=== PATIENT | male | born 1985 | race American Indian/Alaskan Native ===

== ENCOUNTER 2017-11-09 06:23 | Emergency (ER) | payer BC ==
[2017-11-09 06:39] VITALS: BP 126/85
--- NOTE | 2017-11-09 07:08 | XRay Report ---
FINAL REPORT EXAM: XR CHEST ROUTINE 2V HISTORY: productive cough TECHNIQUE: PA and lateral views of the chest were submitted. FINDINGS: The heart size and mediastinum appear normal. The lungs reveal minimal atelectatic changes/infiltrates in the left lower lobe. Pleural fluid is not seen. The skeletal structures do not show any acute changes. IMPRESSION: Minimal atelectatic changes/infiltrates in the left lower lobe.
--- NOTE | 2017-11-09 08:03 | Emergency Department Report ---
Minor Respiratory - HPI Chief Complaint: Upper Respiratory Infection Stated Complaint: CONGESTION WITH EAR PAIN Time Seen by Provider: 11/09/17 07:33 Duration: 4 Days Pain Location: Ear Severity: severe Minor Respiratory: Yes Rhinorrhea (nasal congestion), Yes Able to Tolerate Fluids, Yes Ear Pain (bilateral), Yes Cough, Yes Chest Pain (with cough and), No Sore Throat, No Sick Contacts, No Hemoptysis, No Shortness of Breath, No Fever Other History: This is a 32-year-old male here report that he is not sick for over a week but is getting worse over the last 3 days. Patient reports that he is having in cough that hurts his chest when he coughs. Reported by lateral ear pain and clogged ears. And productive cough with congestion. He said these been taking NyQuil and DayQuil and it is not helping. Denies any fever or chills or nausea or vomiting. Denies any shortness of breath. No alleviating or exacerbating factor with pain. ED Review of Systems ROS: Stated complaint: CONGESTION WITH EAR PAIN Other details as noted in HPI Constitutional: denies: chills, fever Eyes: denies: eye pain, eye discharge ENT: ear pain, congestion. denies: throat pain, hearing loss Respiratory: cough. denies: shortness of breath, stridor, wheezing Cardiovascular: denies: chest pain, palpitations, edema, syncope Gastrointestinal: denies: abdominal pain, nausea, vomiting, diarrhea Musculoskeletal: denies: back pain, joint swelling, arthralgia, myalgia Skin: denies: rash, lesions Neurological: paresthesias. denies: headache ED Past Medical Hx - Past Medical History Previous Medical History?: Yes Additional medical history: Chronia Back Pain - Surgical History Past Surgical History?: No - Family History Family history: hypertension - Social History Smoking Status: Never Smoker Substance Use Type: None - Medications Home Medications: Home Medications Medication Instructions Recorded Confirmed Last Taken Type Docusate Sodium [Colace] 100 mg PO BID #60 capsule 12/15/13 Unknown Rx Starch 51%(Nf) [Anusol] 1 each UT TID #30 supp.rect 12/15/13 Unknown Rx ALBUTEROL Inhaler(NF) [VENTOLIN 2 puff IH Q6H PRN 1 Days #1 inha 11/09/17 Unknown Rx Inhaler(NF)] guaiFENesin/DEXTROMETHORPHAN 20 ml PO Q8H PRN #300 liquid 11/09/17 Unknown Rx [Robitussin Cough-Chest Dm Liq] levoFLOXacin [Levaquin] 750 mg PO QDAY 9 Days #9 tablet 11/09/17 Unknown Rx Minor Respiratory Exam - Exam General: Vital signs noted. No distress. Alert and acting appropriately. This is a 32-year-old male well-nourished well-developed in no acute distress. HEENT: Yes Moist Mucous Membranes, Yes Rhinorrhea (nasal congestion with erythema), Yes Maxillary Tenderness (positive bilateral maxillary sinus tenderness to palpate), No Pharyngeal Erythema, No Pharyngeal Exudates, No Conjuctival Injection, No Frontal Tenderness Ear: Neither TM Bulge (bilateral TM congested without erythema), Neither TM Erythema, Neither EAC Pain, Neither EAC Discharge Neck: Yes Supple (full range of motion, nontender to palpate.), No Adenopathy Lungs: Yes Good Air Exchange (CTAB), Yes Cough (dry cough), No Wheezes, No Ronchi, No Stridor, No Labored Respirations, No Retractions, No Use of Accessory Muscles, No Other Abnormal Lung Sounds Heart: Yes Regular (S1, S2, regular rate and rhythm), No Murmur Abdomen: Yes Normal Bowel Sounds (in all quadrants), No Tenderness (NTTP in all quadrants), No Peritoneal Signs Skin: No Rash, No Edema Neurologic: Alert and oriented, no deficits. Alert and oriented 3, normal gait Musculoskeletal: Unremarkable. No cce. + 2 pulses in all extremities, no neurovascular compromise ED Course Vital Signs 11/09/17 06:30 Temperature 98.7 F Pulse Rate 78 Respiratory 18 Rate Blood Pressure 126/85 O2 Sat by Pulse 100 Oximetry - Reevaluation(s) Reevaluation #1: 11/09/17 08:04 Patient had uneventful ED stay ED Medical Decision Making - Radiology Data Radiology results: report reviewed Chest x-ray 2 views dictated by radiologist report reviewed by myself. Please refer to report below. Patient: EDI BOBO MR#: [id number] : 1985 Acct:[id number] Age/Sex: 32 / M ADM Date: 11/09/17 Loc: ED Attending Dr: Ordering Physician: ED DOCMD Date of Service: 11/09/17 Procedure(s): XR chest routine 2V Accession Number(s): [id number] cc: ED DOC, Fluoro Time In Minutes: FINAL REPORT EXAM: XR CHEST ROUTINE 2V HISTORY: productive cough TECHNIQUE: PA and lateral views of the chest were submitted. FINDINGS: The heart size and mediastinum appear normal. The lungs reveal minimal atelectatic changes/infiltrates in the left lower lobe. Pleural fluid is not seen. The skeletal structures do not show any acute changes. IMPRESSION: Minimal atelectatic changes/infiltrates in the left lower lobe. Transcribed By: RB Dictated By: OLE CLAROS MD Electronically Authenticated By: OLE CLAROS MD Signed Date/Time: 11/09/17705 DD/ 5 TD/TT: 11/09/17705 - Medical Decision Making This is a 32-year-old male who is here report that he is having chest pain with coughing, congestion and with upper respiratory symptoms. Patient was seen and examined, soft and he had chest x-ray that was dictated by radiologist and reported to myself and lower lobe infiltrates versus atelectasis seen on x-ray. I Discussed this with patient and Dr. MAYBERRY. Patient will be treated for pneumonia based and x-ray findings. He was started on Levaquin 750 mg and DuoNeb treatment. Patient will be discharged home to follow-up with primary care physician in 4 days or to return to the emergency room if his symptoms worsen. Patient vital signs stable and he is afebrile he is in no pain. Patient discharged home with prescription for albuterol HFA with spacer, Levaquin for 7 days including today and Mucinex DM. He is to follow-up with Dr. Sorto - Differential Diagnosis PNA, bronchitis, URI with cough and congestion Critical care attestation.: If time is entered above; I have spent that time in minutes in the direct care of this critically ill patient, excluding procedure time. ED Disposition Clinical Impression: URI with cough and congestion Pneumonia Qualifiers: Pneumonia type: due to unspecified organism Laterality: left Lung location: lower lobe of lung Qualified Code(s): J18.1 - Lobar pneumonia, unspecified organism Disposition: DC-01 TO HOME OR SELFCARE Is pt being admited?: No Does the pt Need Aspirin: No Condition: Stable Instructions: Community-acquired Pneumonia (ED), Upper Respiratory Infection ( ED) Additional Instructions: Please follow up with primary care as instructed. Taking medication as instructed Increase her fluid intake Rest for 72 hours Prescriptions: ALBUTEROL Inhaler(NF) [VENTOLIN Inhaler(NF)] 2 puff IH Q6H PRN 1 Days #1 inha PRN Reason: cough and wheezing guaiFENesin/DEXTROMETHORPHAN [Robitussin Cough-Chest Dm Liq] 20 ml PO Q8H PRN # 300 liquid PRN Reason: cough and congestion levoFLOXacin [Levaquin] 750 mg PO QDAY 9 Days #9 tablet Referrals: PRIMARY CAREMD [Primary Care Provider] - 12/11/17 CARLOS MANUEL SOROT JR, MD [Staff Physician] - 11/13/17 [facility] [Outside] - 11/13/17 Forms: Work/School Release Form(ED)
[2017-11-09] MEDS ORDERED: DUONEB *Not for PRN Use IH ONE (08:09)
[2017-11-09] MEDS ORDERED: LEVAQUIN PO ONE (08:13)
== END 2017-11-09 08:48 | disposition home or self-care (01) ==
LOC: ED 06:23
DX: J06.9 Acute upper respiratory infection, unspecified (principal); J18.9 Pneumonia, unspecified organism
CPT/HCPCS: 71046; 94640; 99283

== ENCOUNTER 2018-05-15 17:15 | Emergency (ER) | payer BC ==
[2018-05-15 18:17] VITALS: BP 126/82
--- NOTE | 2018-05-15 18:21 | Emergency Department Report ---
Blank Doc - Documentation Documentation: This is a 32 y.o. male that presents to ED with upper respiratory symptoms x 1 month. Taking OTC cold and flu with no improvement of symptoms. Patient states he was coughing so much he now have pain to left ribs. cc: cough and rhinorrhea Ordered CXR Fast track for further evaluation.
--- NOTE | 2018-05-15 20:31 | XRay Report ---
PROCEDURE: XR CHEST ROUTINE 2V TECHNIQUE: PA and lateral chest radiographs were obtained. HISTORY: cough COMPARISONS: None. FINDINGS: Heart: Normal. Mediastinum/Vessels: Normal. Lungs/Pleural space: Normal. Bony thorax: No acute osseous abnormality. IMPRESSION: Normal examination. This document is electronically signed by Trey Cotto MD., May 15 2018 08:29:50 PM ET
--- NOTE | 2018-05-15 20:34 | Emergency Department Report ---
ED General Adult HPI - General Chief complaint: Upper Respiratory Infection Stated complaint: SOB/COUGH SX Time Seen by Provider: 05/15/18 18:17 Source: patient Mode of arrival: Ambulatory Limitations: No Limitations - History of Present Illness Initial comments: Pt is a 32 yo male who presents to the ED with c/o a cough that began 5 weeks ago. He states he has white/clear sputum production. The patient has associated rhinorrhea, congestion, mild SOB, and subjective fever. He states he last had a fever 4 days ago and took tylenol and has not had one since. The patient states the last time he has these sx was in October 2017 when he had PNA. He denies any CP, weight loss, night sweats, hemoptysis, ear ache, recent immbolization, long car/plane ride, recent surgery, recent hospitalization, recent antiobiotic use, or recent travel outside of the [place]. The patient states he has taken nyquil, dayquil, robutussin, and mucinex without any relief. MD Complaint: cough Onset/Timin -: week(s) Severity scale (0 -10): 7 Consistency: intermittent Improves with: none Associated Symptoms: cough, fever/chills, shortness of breath. denies: chest pain, diaphoresis, loss of appetite, nausea/vomiting, rash, syncope - Related Data Previous Rx's Medication Instructions Recorded Last Taken Type ALBUTEROL Inhaler(NF) [VENTOLIN 2 puff IH Q6H PRN 1 Days #1 inha 05/15/18 Unknown Rx Inhaler(NF)] guaiFENesin/DEXTROMETHORPHAN 20 ml PO Q8H PRN #300 liquid 05/15/18 Unknown Rx [Robitussin Cough-Chest Dm Liq] methylPREDNISolone [Medrol Dose 10 mg PO QAM 7 Days #1 pack 05/15/18 Unknown Rx Chicho] Allergies Allergy/AdvReac Type Severity Reaction Status Date / Time No Known Allergies Allergy Verified 05/15/18 17:17 ED Review of Systems ROS: Stated complaint: SOB/COUGH SX Other details as noted in HPI Comment: All other systems reviewed and negative ED Past Medical Hx - Past Medical History Previous Medical History?: No Additional medical history: Chronia Back Pain - Surgical History Past Surgical History?: No - Social History Smoking Status: Never Smoker Substance Use Type: None - Medications Home Medications: Home Medications Medication Instructions Recorded Confirmed Last Taken Type ALBUTEROL Inhaler(NF) [VENTOLIN 2 puff IH Q6H PRN 1 Days #1 inha 05/15/18 Unknown Rx Inhaler(NF)] guaiFENesin/DEXTROMETHORPHAN 20 ml PO Q8H PRN #300 liquid 05/15/18 Unknown Rx [Robitussin Cough-Chest Dm Liq] methylPREDNISolone [Medrol Dose 10 mg PO QAM 7 Days #1 pack 05/15/18 Unknown Rx Chicho] ED Physical Exam - General Limitations: No Limitations General appearance: alert, in no apparent distress - Head Head exam: Present: atraumatic, normocephalic - Eye Eye exam: Present: normal appearance - ENT ENT exam: Present: normal exam, normal orophraynx, mucous membranes moist - Neck Neck exam: Present: normal inspection - Respiratory Respiratory exam: Present: normal lung sounds bilaterally. Absent: respiratory distress, wheezes, rales, rhonchi, stridor, accessory muscle use, decreased breath sounds, prolonged expiratory - Cardiovascular Cardiovascular Exam: Present: regular rate, normal rhythm, normal heart sounds. Absent: rubs, gallop - Neurological Exam Neurological exam: Present: alert, oriented X3 - Psychiatric Psychiatric exam: Present: normal affect, normal mood - Skin Skin exam: Present: warm, dry, intact ED Course Vital Signs 05/15/18 05/15/18 18:05 18:16 Temperature 98.3 F 98.4 F Pulse Rate 60 86 Respiratory 20 16 Rate Blood Pressure 124/47 126/82 O2 Sat by Pulse 99 98 Oximetry Critical care attestation.: If time is entered above; I have spent that time in minutes in the direct care o f this critically ill patient, excluding procedure time. ED Disposition Clinical Impression: URI (upper respiratory infection) Disposition: DC-01 TO HOME OR SELFCARE Is pt being admited?: No Does the pt Need Aspirin: No Instructions: Upper Respiratory Infection (ED) Additional Instructions: Pt with a cough x 5 weeks, VSS afebrile in ED, no weight loss, pleuritic CP, recent travel. Advised pt to follow up with a PCP in the next couple of days. Discussed with patient prescriptions and side effects. Advised pt to return to the ED if have new or worsening sx or if sx do not improve. Prescriptions: ALBUTEROL Inhaler(NF) [VENTOLIN Inhaler(NF)] 2 puff IH Q6H PRN 1 Days #1 inha PRN Reason: cough and wheezing guaiFENesin/DEXTROMETHORPHAN [Robitussin Cough-Chest Dm Liq] 20 ml PO Q8H PRN #300 liquid PRN Reason: cough and congestion methylPREDNISolone [Medrol Dose Chicho] 10 mg PO QAM 7 Days #1 pack Referrals: WILMA SHAH MD [Primary Care Provider] - 3-5 Days Time of Disposition: 20:46 Print Language: [id number]
== END 2018-05-15 20:56 | disposition home or self-care (01) ==
LOC: ED 17:15
DX: J06.9 Acute upper respiratory infection, unspecified (principal); M54.9 Dorsalgia, unspecified; G89.29 Other chronic pain
CPT/HCPCS: 71046; 99283

== ENCOUNTER 2020-10-14 12:19 | Emergency (ER) | payer BC | END 2020-10-14 14:16 | disposition left against medical advice (07) | LOC: ED 12:19 | DX: M54.30 Sciatica, unspecified side (principal); Z53.21 Procedure and treatment not carried out due to patient leaving prior to being seen by health care provider ==